=== PATIENT | male | born 1975 | race Caucasian/White ===

== ENCOUNTER 2022-11-07 11:24 | Inpatient (IN) | payer SELFPAY, OTHER ==
[2022-11-07 11:50] VITALS: BP 132/71; PULSE 82; RESP 16; TEMP 36.5; O2SAT 96; BMI 31.6
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
[2022-11-07] MEDS: Acetaminophen 500 MG Tablet 1000 MG PO ×2 (13:50→23:16)
[2022-11-07] MEDS: oxyCODONE 5 MG Tablet PO ×2 (17:20→23:20)
[2022-11-07 20:04] VITALS: PULSE 82; O2SAT 95
[2022-11-07 20:28] VITALS: BP 130/69; PULSE 84; RESP 18; TEMP 36.7; O2SAT 95
[2022-11-07] MEDS: BACITRACIN 15 GM Tube 1 APPLIC TOPICAL (23:12)
[2022-11-07] MEDS: MELATONIN 10 MG TABLET 5 MG PO (23:15)
[2022-11-07] MEDS: levETIRAcetam Oral Solution 500 MG/5 ML PO (23:15)
[2022-11-07] MEDS: QUEtiapine 25 MG Tablet PO (23:16)
[2022-11-07] MEDS: Senna/Docusate Sodium 1 Tablet 2 TABLET PO (23:16)
[2022-11-08] MEDS: Enoxaparin 40 MG/0.4 ML Syringe SC (05:26)
[2022-11-08] MEDS: Acetaminophen 500 MG Tablet 1000 MG PO ×3 (05:27→20:59)
[2022-11-08] MEDS: oxyCODONE 5 MG Tablet PO ×3 (05:30→17:22)
[2022-11-08 06:09] LABS: Mucous, Urine 0 SEEN /hpf (<or=2+); Red Blood Cells-Urine 0 SEEN /hpf (0-5); Squamous Epithelial Cells - UA 0 SEEN /hpf (0-5)
[2022-11-08 06:14] LABS: Color, Urine Yellow (Yellow); Glucose, Dipstick Normal (Normal); Ketone-Dipstick 15 mg/dl (Negative); Leukocyte Esterase-Dipstick Negative /ul (Negative); Nitrite-Dipstick Negative (Negative); Occult Blood-Urine Negative /ul (Negative); Protein-Dipstick 15 mg/dl (Negative); Specific Gravity, Urine 1.025 (1.002-1.030); Urine Bilirubin Dipstick 1 mg/dL (Negative); Urine Clarity Clear (Clear); Urine Urobilinogen 8 mg/dl (Normal)
[2022-11-08 06:26] LABS: Bacteria RARE /hpf (None Seen); White Blood Cells 0-5 SEEN /hpf (0-5)
[2022-11-08] MEDS: BACITRACIN 15 GM Tube 1 APPLIC TOPICAL ×2 (06:27→21:01)
[2022-11-08 07:42] VITALS: BP 119/83; PULSE 76; RESP 16; TEMP 36.8; O2SAT 96
[2022-11-08 08:22] LABS: Absolute Lymphocyte Count 0.74 X10^3/uL (0.83-4.51); Absolute Neutrophil Count 4.8 X10^3/uL (2.0-7.7); Basophil# 0.02 X10^3/uL; Basophil% 0.3 % (0-1); Eosinophil# 0.12 X10^3/uL; Eosinophils% 1.9 % (0-5); Hemoglobin 14.4 g/dL (13.0-16.5); Lymphocyte # 0.74 X10^3/ul (0.83-4.51); Lymphocyte % 11.6 % (19-41); Mean Corp Hgb Conc 36.9 g/dL (32-36); Mean Corpuscular Hgb 33.6 pg (27.0-32.0); Mean Corpuscular Volume 90.9 fL (80-94); Mean Platelet Vol. 9.7 fl (6.2-12.0); Monocyte# 0.72 X10^3/uL; Monocyte% 11.3 % (0-10); NRBC Flagged by Analyzer 0 % (0-5); Neutrophil # 4.79 X10^3/uL (2.7-7.7); Neutrophil % 74.7 % (47-70); Platelet Count 236 K/mm3 (150-450); RBC Distribution Width SD 39.2 fl (35.1-43.9); Red Blood Count 4.29 M/mm3 (4.6-6.2); White Blood Count 6.4 K/mm3 (4.4-11.0)
[2022-11-08 09:00] LABS: ALB/GLOB Ratio 0.8 RATIO (0.9-2.4); AST(SGOT) 50 U/L (15-37); Alanine Aminotransfer ALT/SGPT 63 U/L (16-61); Albumin, Serum 3.2 g/dL (3.2-5.0); Alkaline Phosphatase 81 U/L (45-117); Anion Gap 6 (5-15); BUN 23 mg/dL (7-18); BUN/Creat Ratio 28.4 RATIO (10-20); Calcium,Total 9.3 mg/dL (8.5-10.1); Chloride 105 mmol/L (98-107); Cholesterol 197 mg/dL (200); Creatinine, Serum 0.81 mg/dL (0.70-1.30); EST Glomerular Filtration Rate 109 mL/min (>60); Est Glom Filt Rate - Afr Amer 132 mL/min (>60); Estimated Creatinine Clearance 125.08 ml/min; Glucose 142 mg/dL (74-106); High Density Lipoprotein 36 mg/dL; Magnesium 2.2 mg/dL (1.6-2.6); Phosphorus 3.3 mg/dL (2.5-4.9); Potassium 3.2 mmol/L (3.5-5.1); Protein, Total 7.2 g/dL (6.4-8.2); Sodium Level 138 mmol/L (136-145); Triglycerides 121 mg/dL; Very Low Density Lipoprotein 24 mg/dL (5-40)
[2022-11-08] MEDS: levETIRAcetam Oral Solution 500 MG/5 ML PO ×2 (09:04→20:58)
[2022-11-08] MEDS: Tamsulosin HCl 0.4 MG Capsule PO (09:05)
[2022-11-08] MEDS: Senna/Docusate Sodium 1 Tablet 2 TABLET PO (09:05)
[2022-11-08 10:00] VITALS: O2SAT 96
[2022-11-08] MEDS: Potassium Chloride Oral Tablet 20 MEQ 40 MEQ PO (11:02)
[2022-11-08] MEDS: Potassium Chloride Oral Tablet 20 MEQ PO (11:02)
--- NOTE | 2022-11-08 11:05 | NURSING ---
Patient had lab work obtained this AM. Patient potassium level 3.2, MD notified. Ordered 40 mEq of Klor-Con x1 dose in addition to the 20 mEq Klor-con Daily. notified. Medication administerred to patient.
[2022-11-08 19:34] VITALS: BP 134/80; PULSE 74; RESP 18; TEMP 37.3; O2SAT 96
[2022-11-08 20:50] VITALS: PULSE 74; RESP 18; O2SAT 96
[2022-11-08] MEDS: Mirtazapine 15 MG Tablet PO (20:59)
[2022-11-08] MEDS: QUEtiapine 25 MG Tablet PO (20:59)
[2022-11-08] MEDS: MELATONIN 10 MG TABLET 5 MG PO (21:00)
[2022-11-09] MEDS: oxyCODONE 5 MG Tablet PO ×3 (00:15→11:26)
[2022-11-09] MEDS: Enoxaparin 40 MG/0.4 ML Syringe SC (05:26)
[2022-11-09] MEDS: Acetaminophen 500 MG Tablet 1000 MG PO ×3 (05:26→21:51)
[2022-11-09] MEDS: BACITRACIN 15 GM Tube 1 APPLIC TOPICAL ×2 (05:27→21:55)
--- NOTE | 2022-11-09 06:29 | NURSING ---
Reviewed and agree with VENDING TECHNICIAN assessment.
[2022-11-09 08:02] VITALS: BP 135/88; PULSE 84; RESP 18; TEMP 37.2; O2SAT 93
[2022-11-09] MEDS: Potassium Chloride Oral Tablet 20 MEQ PO (09:29)
[2022-11-09] MEDS: Tamsulosin HCl 0.4 MG Capsule PO (09:29)
[2022-11-09] MEDS: levETIRAcetam Oral Solution 500 MG/5 ML PO ×2 (09:30→21:55)
--- NOTE | 2022-11-09 17:45 | CT_ITS ---
We are attempting to reach an attending provider to discuss findings. An addendum with communication details will be sent when the communication is complete. INDICATION: ALTERED MENTAL STATUS EXAMINATION: CT BRAIN - CT Head W/O Contrast Injection TECHNIQUE: Multiple axial images were obtained of the head without intravenous contrast. A radiation dose optimization technique was used for this scan. IV Contrast dosage and agent: None. COMPARISON: None FINDINGS: Post surgical change with left-sided craniotomy. This patient has a left frontoparietal extra-axial mixed attenuation fluid collection measuring 1.4 cm in thickness. This extends from the high parietal region down to the temporal lobe. There is also some air in the extra-axial space on the left side. Slight midline shift to the right of approximately 2 mm. There is no hydrocephalus. Probable high left subarachnoid blood. No obvious parenchymal hemorrhage is seen. Other significant left-sided sulcal effacement suggesting edema and/or mass effect. Nonspecific low attenuation area at the posterior right temporal lobe axial image 15 series 2 measuring approximately 2.6 cm x 1.9 cm x 1.5 cm. Coronal image 47 series 601. Intact brainstem and posterior fossa. A right frontal catarino hole with adjacent soft tissue staple present axial image 35 series 2. No acute extra-axial collection in this region. Mild sphenoid sinus mucosal disease. CT/STROKE Brain/Head without Cont IMPRESSION: Mixed attenuation left-sided extra-axial collection which may reflect combination of acute/subacute blood products. Left frontal/parietal cerebral edema with mass effect. Very slight left to right midline shift. Abnormal focal hypodensity in the posterior right temporal lobe of unclear significance/etiology. Ischemia is not excluded in this area. Discussed with Dr. Yu. Electronically Signed: Alen James MD at 18:17 EDT ,
--- NOTE | 2022-11-09 17:55 | CT_ITS ---
We are attempting to reach an attending provider to discuss findings. An addendum with communication details will be sent when the communication is complete. INDICATION: ALTERED MENTAL STATUS EXAMINATION: CTA head and neck. TECHNIQUE: Noncontrast axial images were obtained of the brain. Subsequently, routine carotid CT angiogram protocol was performed without and with IV contrast. In addition, images were obtained of the [place] of [place]. NASCET criteria using the distal ICAs for comparison were used for evaluation of stenoses. 3D reconstructions were reviewed. A radiation dose optimization technique was used for this scan. IV Contrast dosage and agent: 100 cc [id number]-[id number]. COMPARISON: None. FINDINGS: --CT BRAIN: Please note separate brain dictation. This patient does have some right-sided mastoid fluid and the middle ear opacity surrounding the ossicles without obvious fracture or dislocation. --CTA NECK: AORTIC ARCH AND BRANCHES: Normal anatomy, patent. RIGHT CCA: No occlusion, significant stenosis or dissection. RIGHT ICA: No occlusion, significant stenosis or dissection. LEFT CCA: No occlusion, significant stenosis or dissection. LEFT ICA: No occlusion, significant stenosis or dissection. RIGHT VERTEBRAL ARTERY: No occlusion, significant stenosis or dissection. LEFT VERTEBRAL ARTERY: No occlusion, significant stenosis or dissection. NECK SOFT TISSUES: Upper lung atelectatic change. Mild cervical spine degenerative change. No definitive acute fracture. --CTA HEAD: --Anterior circulation: ICAs: No significant stenosis at the intracranial/visualized segments. ACAs: No significant stenosis at the visualized segments. ACOM: Present. MCAs: No significant stenosis at the visualized segments. --Posterior circulation: PCOMs: Not well seen. under baster: No significant stenosis at the visualized segments. BASILAR ARTERY: No significant stenosis. VERTEBRAL ARTERIES: No significant stenosis at the intradural/visualized segments. No evidence of intracranial aneurysm or vascular malformation. CT/STROKE CTA Head AND Neck W/Con IMPRESSION: Negative CT Brain, CTA Carotid, and CTA Brain. No hemodynamically significant stenosis appreciated. There is some right-sided mastoid fluid. A fracture through the temporal bone here is not obvious however given the adjacent hypodensity seen on noncontrast CT head, nonhemorrhagic contusion could be considered. Electronically Signed: Alen James MD at 18:31 EDT ,
--- NOTE | 2022-11-09 18:16 | NURSING ---
Marjorie LAWLER went in to [facility] room to check on pt and see if he needed pain meds at approx 1735. She noted pt was not answering questions appropriately. She called this RN in to assess. Pt was answering wrong words to simple questions. Unable to recognize family members. VSS 136/71, 82, 18, 98.6, 97% on room air. Blood sugar checked 137. Stroke alert called Research Group Director arrived to floor and met Dr. Yu and pt was transported to CT scan.
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
[2022-11-09 18:25] VITALS: BP 136/71; PULSE 82; RESP 18; TEMP 36.5; O2SAT 98
[2022-11-09 18:34] LABS: Bedside Glucose 137 mg/dL (74-106)
[2022-11-09 19:00] VITALS: BP 136/71; PULSE 82; RESP 18; TEMP 37; O2SAT 97
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
--- NOTE | 2022-11-09 19:37 | NURSING ---
pt left to PCU via bed per services of rehab staff via bed. Spouse and children accompanied pt to the room .
[2022-11-09 21:45] VITALS: BP 138/95; PULSE 83; RESP 18; TEMP 37.4; O2SAT 94
[2022-11-09] MEDS: MELATONIN 10 MG TABLET 5 MG PO (21:52)
[2022-11-09] MEDS: Mirtazapine 15 MG Tablet PO (21:52)
[2022-11-09] MEDS: QUEtiapine 25 MG Tablet PO (21:55)
--- NOTE | 2022-11-09 22:09 | NURSING ---
2004 pt returned to the floor from PCU via bed per services of hospital staff, family present at bedside
--- NOTE | 2022-11-10 00:06 | NURSING ---
2145 vs retaken and bp is noted to be mildly elevated at 138/95, ap 83 and irregular and temp is 99.4. pt is noted to be restless but reports that he doesn't need extra pain medication when offered. pt did let staff do clinical findings and take hs medication.pt required cueing when asked who his and daughter was and were he was at. pt is only taking sips and chips for for fluids, urine is tea colored with an odor. pt had difficulty keeping his eyes open during clinical findings. pt was able to bend his legs at the knee but would not raise them up when asked, pcts were equal. rn aware of the bp 2315 pt daughter came out and reports that the pt removed his sl and to come and take a look at it, area cleansed and dsd applied which pt removed promptly. staff and family attempted to get pt up to the br, pt did ambulate to the br and started pulling away stating that he didn't need to go in there. pt assisted back to the bed and laid down. pt remains restless with some agitation
[2022-11-10] MEDS: oxyCODONE 5 MG Tablet PO ×3 (01:17→22:48)
[2022-11-10 06:26] LABS: Anion Gap 3 (5-15); BUN 24 mg/dL (7-18); Calcium,Total 9.7 mg/dL (8.5-10.1); Chloride 105 mmol/L (98-107); EST Glomerular Filtration Rate 86 mL/min (>60); Est Glom Filt Rate - Afr Amer 104 mL/min (>60); Estimated Creatinine Clearance 101.31 ml/min; Glucose 103 mg/dL (74-106); Potassium 3.6 mmol/L (3.5-5.1); Sodium Level 138 mmol/L (136-145)
[2022-11-10] MEDS: Acetaminophen 500 MG Tablet 1000 MG PO ×3 (06:31→21:20)
[2022-11-10] MEDS: Enoxaparin 40 MG/0.4 ML Syringe SC (06:32)
[2022-11-10 07:47] VITALS: BP 124/85; PULSE 98; RESP 15; TEMP 36.9; O2SAT 96
[2022-11-10] MEDS: levETIRAcetam Oral Solution 500 MG/5 ML PO ×2 (08:51→21:11)
[2022-11-10] MEDS: BACITRACIN 15 GM Tube 1 APPLIC TOPICAL (08:51)
[2022-11-10] MEDS: Tamsulosin HCl 0.4 MG Capsule PO (08:51)
[2022-11-10] MEDS: Potassium Chloride Oral Tablet 20 MEQ PO ×2 (08:51→11:37)
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
[2022-11-10] MEDS: 0.9% Normal Saline 1,000 ML 75 ML IV (11:38)
--- NOTE | 2022-11-10 13:48 | VDLE_ITS ---
Reason For Study: F/U DVT (DISTAL TO KNEE unknown which leg) RIGHT LEFT GSV is normal. GSV is normal. CFV is compressible. CFV is compressible, spontaneous, phasic, FV is compressible, spontaneous, phasic, competent, and demonstrates normal competent and demonstrates normal augmentation. augmentation. FV is compressible, spontaneous, phasic, POP V is compressible, spontaneous, phasic, competent and demonstrates normal competent and demonstrates normal augmentation. augmentation. POP V is compressible, spontaneous, phasic, T/P Trunk is compressible. competent and demonstrates normal PTV is compressible. augmentation. RT PerV is compressible. T/P Trunk is compressible. Procedure PTV is compressible. This is a venous duplex using B-mode, color LT PerV is compressible. flow and spectral Doppler. Exam performed portable in patient room. The study was technically difficult. PT was agitated. PT would not permit RT CFV evaluation with color or PW doppler. . A preliminary report was called and/or faxed to 4th floor REHAB UNIT. VL/Venous Duplex US - Roni Extrem Interpretation Summary Deep veins of the bilateral lower extremities are patent and compressible segme ntally. There is no evidence of bilateral lower extremity deep vein thrombosis. The bilateral great saphenous veins appear patent and compressible segmentally. Ordering Physician: Crystal Gómez Referring Physician: Crystal Gómez Performed By: Nita Oliver, RDCS, RVT
[2022-11-10] MEDS: 0.9% Normal Saline 1,000 ML 125 ML IV ×2 (16:37→23:29)
[2022-11-10 19:56] VITALS: BP 104/80; PULSE 79; RESP 16; TEMP 36.9; O2SAT 95
[2022-11-10] MEDS: MELATONIN 10 MG TABLET 5 MG PO (21:11)
[2022-11-10] MEDS: QUEtiapine 25 MG Tablet 37.5 MG PO (21:11)
[2022-11-10] MEDS: Mirtazapine 15 MG Tablet PO (21:18)
[2022-11-10 22:00] VITALS: PULSE 79; RESP 16; O2SAT 95
--- NOTE | 2022-11-10 22:55 | NURSING ---
Pt restless this hs and needed coaxing to take hs meds. Pt refused at first but meds were taken. Pt has been impulsive and agitated. Pt sits up at side of bed and grumbles about IV and pole. Pt was walked to BR, but refused to go in. Pt is slouched down at end of bed but refuses to cooperate to get up into bed. Family is at bedside but pt acts impatient with them as they try to answer pt needs. Pt not conveying needs. Call light is within reach and rounding is frequent.
[2022-11-11 04:50] VITALS: BMI 31.6
[2022-11-11] MEDS: Acetaminophen 500 MG Tablet 1000 MG PO ×3 (05:00→21:32)
[2022-11-11] MEDS: Enoxaparin 40 MG/0.4 ML Syringe SC (05:00)
[2022-11-11] MEDS: BACITRACIN 15 GM Tube 1 APPLIC TOPICAL ×2 (05:00→21:33)
[2022-11-11 06:06] LABS: Absolute Lymphocyte Count 1.06 X10^3/uL (0.83-4.51); Absolute Neutrophil Count 4.2 X10^3/uL (2.0-7.7); Basophil# 0.03 X10^3/uL; Basophil% 0.5 % (0-1); Eosinophil# 0.12 X10^3/uL; Eosinophils% 1.9 % (0-5); Hemoglobin 14.1 g/dL (13.0-16.5); Lymphocyte # 1.06 X10^3/ul (0.83-4.51); Lymphocyte % 16.9 % (19-41); Mean Corp Hgb Conc 35.3 g/dL (32-36); Mean Corpuscular Hgb 33.1 pg (27.0-32.0); Mean Corpuscular Volume 93.9 fL (80-94); Mean Platelet Vol. 9.6 fl (6.2-12.0); Monocyte% 12.7 % (0-10); NRBC Flagged by Analyzer 0 % (0-5); Neutrophil # 4.24 X10^3/uL (2.7-7.7); Neutrophil % 67.5 % (47-70); Platelet Count 297 K/mm3 (150-450); RBC Distribution Width CV 12.4 % (11.6-14.6); RBC Distribution Width SD 42.3 fl (35.1-43.9); Red Blood Count 4.26 M/mm3 (4.6-6.2); White Blood Count 6.3 K/mm3 (4.4-11.0)
[2022-11-11 07:02] LABS: Anion Gap 6 (5-15); BUN 22 mg/dL (7-18); BUN/Creat Ratio 25.8 RATIO (10-20); Calcium,Total 9.2 mg/dL (8.5-10.1); Chloride 108 mmol/L (98-107); Creatinine, Serum 0.85 mg/dL (0.70-1.30); EST Glomerular Filtration Rate 103 mL/min (>60); Est Glom Filt Rate - Afr Amer 124 mL/min (>60); Estimated Creatinine Clearance 119.19 ml/min; Glucose 92 mg/dL (74-106); Potassium 3.7 mmol/L (3.5-5.1); Sodium Level 142 mmol/L (136-145)
[2022-11-11 07:43] VITALS: BP 129/68; PULSE 62; RESP 16; TEMP 36; O2SAT 93
[2022-11-11] MEDS: Tamsulosin HCl 0.4 MG Capsule PO (08:32)
[2022-11-11] MEDS: Propranolol LA 60 MG Capsule PO (08:32)
[2022-11-11] MEDS: levETIRAcetam Oral Solution 500 MG/5 ML PO ×2 (08:32→21:32)
[2022-11-11] MEDS: Potassium Chloride Oral Tablet 20 MEQ PO (08:44)
[2022-11-11 10:00] VITALS: O2SAT 94
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
[2022-11-11] MEDS: 0.9% Normal Saline 1,000 ML 75 ML IV (14:48)
[2022-11-11] MEDS: 0.9% Saline Lock 10 ML Syringe IV (14:49)
--- NOTE | 2022-11-11 14:57 | NURSING ---
Spoke with Jazz at Dr Jacoby chapman dc on 11/13 call office and schedule f/u when we have a dc date
[2022-11-11] MEDS: oxyCODONE 5 MG Tablet PO (15:10)
[2022-11-11] MEDS: QUEtiapine 25 MG Tablet PO (15:19)
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
[2022-11-11] MEDS: oxyCODONE 5 MG Tablet 10 MG PO ×2 (19:45→21:35)
[2022-11-11] MEDS: QUEtiapine 25 MG Tablet 75 MG PO (20:54)
[2022-11-11 20:55] VITALS: BP 130/75; PULSE 60; RESP 14; TEMP 36.7; O2SAT 98
[2022-11-11] MEDS: Senna/Docusate Sodium 1 Tablet 2 TABLET PO (21:31)
[2022-11-11] MEDS: Mirtazapine 15 MG Tablet PO (21:32)
[2022-11-11] MEDS: MELATONIN 10 MG TABLET 5 MG PO (21:32)
[2022-11-11 22:00] VITALS: PULSE 63; RESP 15; O2SAT 96
[2022-11-12] MEDS: 0.9% Normal Saline 1,000 ML 75 ML IV (04:02)
[2022-11-12 06:36] VITALS: BMI 31.5
[2022-11-12] MEDS: oxyCODONE 5 MG Tablet 10 MG PO ×5 (06:36→22:08)
[2022-11-12] MEDS: Enoxaparin 40 MG/0.4 ML Syringe SC (06:36)
[2022-11-12] MEDS: Acetaminophen 500 MG Tablet 1000 MG PO ×2 (06:36→22:08)
[2022-11-12] MEDS: BACITRACIN 15 GM Tube 1 APPLIC TOPICAL ×2 (06:36→20:20)
[2022-11-12 07:26] VITALS: BP 107/68; PULSE 58; RESP 15; TEMP 36.7; O2SAT 97
[2022-11-12 07:28] VITALS: BMI 31.5
[2022-11-12] MEDS: Tamsulosin HCl 0.4 MG Capsule PO (10:59)
[2022-11-12] MEDS: Propranolol LA 60 MG Capsule PO (11:00)
[2022-11-12] MEDS: Potassium Chloride Oral Tablet 10 MEQ 30 MEQ PO (11:00)
--- NOTE | 2022-11-12 14:36 | CHAPLAIN ---
Type of Pastoral Visit ___ Initial Visit ___ Follow-up Visit ___ On-call Visit ___ General Patient Visit ___ Spiritual Assessment ___ Family Conference ___ Bereavement ___ Rapid Response ___ Code Blue ___ Other (describe below) Pastoral Care Referral From ___ Patient ___ Family ___ Nurse ___ Physician ___ Municipal Court Judge ___ General Service Technician ___ Other (describe below) Sacrament/Intervention ___ Active listening ___ Anointing ___ Pentecostal ___ Bereavement ___ Communion ___ Sarah exploration ___ ___ Life review ___ Prayer ___ Reconciliation ___ Sacrament of Sick ___ Supportive presence ___ Wedding ___ Other (describe below) Pastoral Comments This is third day of attempts to visit with patient; today the first attempt found him sleeping and staff/family prefer him to be sleeping as needed; today the second attempt he was just to begin his OT session; introduced self to patient with promise to try again another time
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
--- NOTE | 2022-11-12 15:01 | NURSING ---
pt restless and agitated, walked in the hallway with staff and son, scheduled Oxyir given. pt returned to bed. bed alarm on and call light in reach. will continued to monitor
--- NOTE | 2022-11-12 18:08 | NURSING ---
IV fluids paused at this time d/t pt becoming agitated and pulling at tubing
[2022-11-12 19:18] VITALS: BP 134/86; PULSE 59; RESP 15; TEMP 37; O2SAT 96
[2022-11-12 20:30] VITALS: PULSE 59; RESP 15; O2SAT 97
[2022-11-12] MEDS: MELATONIN 10 MG TABLET 5 MG PO (20:31)
[2022-11-12] MEDS: Mirtazapine 15 MG Tablet PO (20:31)
[2022-11-12] MEDS: levETIRAcetam Oral Solution 500 MG/5 ML PO (20:31)
[2022-11-12] MEDS: Senna/Docusate Sodium 1 Tablet 2 TABLET PO (20:32)
[2022-11-12] MEDS: QUEtiapine 25 MG Tablet 75 MG PO (20:44)
[2022-11-12] MEDS: 0.9% Saline Lock 10 ML Syringe IV (21:00)
[2022-11-13] MEDS: 0.9% Normal Saline 1,000 ML 75 ML IV ×2 (05:49→20:11)
[2022-11-13] MEDS: Enoxaparin 40 MG/0.4 ML Syringe SC (05:52)
[2022-11-13] MEDS: Acetaminophen 500 MG Tablet 1000 MG PO ×3 (05:52→21:25)
[2022-11-13] MEDS: oxyCODONE 5 MG Tablet 10 MG PO ×4 (05:52→21:28)
--- NOTE | 2022-11-13 06:29 | NURSING ---
51 phylicia were removed from pts incision this as per order. pt tolerated the procedure fair. pt has thick old dried drainage noted along the incision line, 4 sutures are noted mid way in the incision and were not removed at this time d/t being covered with old thick drainage and pt was becoming restless while the phylicia were being removed
[2022-11-13 08:29] VITALS: BP 131/87; PULSE 64; RESP 18; TEMP 36.6; O2SAT 96
[2022-11-13] MEDS: Propranolol LA 60 MG Capsule PO (09:21)
[2022-11-13] MEDS: Potassium Chloride Oral Tablet 10 MEQ 30 MEQ PO (09:21)
[2022-11-13] MEDS: Tamsulosin HCl 0.4 MG Capsule PO (09:22)
[2022-11-13] MEDS: QUEtiapine 25 MG Tablet PO (11:28)
--- NOTE | 2022-11-13 12:46 | CASEMGMT ---
Social Work IDT met with patient and multiple family members for Team meeting. Discussed patient's progress in PT/OT/ST/SN. Pt has coverage through [employer]. Pt is making progress and requesting continued stay for further improvement. Major barrier is cognition, safety awareness and comprehension. Will ReTea, weekly. SW will continue to follow for DC planning and coordination of needs. Marti Martinez, SLITTER CUT OFF OPERATOR CONSTRUCTION TEACHER
--- NOTE | 2022-11-13 14:57 | CHAPLAIN ---
Type of Pastoral Visit ___ Initial Visit _x__ Follow-up Visit ___ On-call Visit ___ General Patient Visit ___ Spiritual Assessment ___ Family Conference ___ Bereavement ___ Rapid Response ___ Code Blue ___ Other (describe below) Pastoral Care Referral From ___ Patient _x__ Family ___ Nurse ___ Physician ___ Horse Rider ___ Home Theater Specialist ___ Other (describe below) Sacrament/Intervention _x__ Active listening ___ Anointing ___ Congregational ___ Bereavement ___ Communion ___ Sarah exploration ___ ___ Life review _x__ Prayer ___ Reconciliation ___ Sacrament of Sick _x__ Supportive presence ___ Wedding ___ Other (describe below) Pastoral Comments patient is awake this time and is surrounded by several family members who were present for the care team meetings held just minutes before; family members are welcoming and ask for prayers; family members state that there was much good news in the meeting and are pleased for patient; pt was offered support and this membership sales advisor stated that he has stopped to see him before; pt asks why not met before and the answer was because the patient was always sleeping; pt states he understands; family ask for return visits and state hope is for pt to go home in a week; prayer and presence given
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
[2022-11-13 19:15] VITALS: BP 150/80; PULSE 55; RESP 18; TEMP 36.7; O2SAT 95
[2022-11-13 20:22] VITALS: O2SAT 95
[2022-11-13] MEDS: MELATONIN 10 MG TABLET 5 MG PO (21:23)
[2022-11-13] MEDS: QUEtiapine 25 MG Tablet 75 MG PO (21:24)
[2022-11-13] MEDS: Mirtazapine 30 MG Tablet PO (21:25)
[2022-11-13] MEDS: Senna/Docusate Sodium 1 Tablet 2 TABLET PO (21:26)
[2022-11-14 05:43] LABS: Hematocrit 40.9 % (40-54); Hemoglobin 14.6 g/dL (13.0-16.5); Mean Corp Hgb Conc 35.7 g/dL (32-36); Mean Corpuscular Hgb 33.2 pg (27.0-32.0); Mean Platelet Vol. 9.7 fl (6.2-12.0); Platelet Count 305 K/mm3 (150-450); RBC Distribution Width CV 12.3 % (11.6-14.6); White Blood Count 6.2 K/mm3 (4.4-11.0)
[2022-11-14] MEDS: Acetaminophen 500 MG Tablet 1000 MG PO ×3 (05:59→20:21)
[2022-11-14] MEDS: Enoxaparin 40 MG/0.4 ML Syringe SC (05:59)
[2022-11-14 06:00] VITALS: BMI 31.4
[2022-11-14] MEDS: oxyCODONE 5 MG Tablet 10 MG PO ×4 (06:03→20:21)
[2022-11-14 06:08] LABS: Anion Gap 6 (5-15); BUN 19 mg/dL (7-18); BUN/Creat Ratio 19.1 RATIO (10-20); Calcium,Total 9.2 mg/dL (8.5-10.1); Chloride 107 mmol/L (98-107); Creatinine, Serum 0.99 mg/dL (0.70-1.30); EST Glomerular Filtration Rate 86 mL/min (>60); Est Glom Filt Rate - Afr Amer 104 mL/min (>60); Estimated Creatinine Clearance 102.33 ml/min; Glucose 98 mg/dL (74-106); Potassium 3.5 mmol/L (3.5-5.1); Sodium Level 141 mmol/L (136-145)
[2022-11-14 07:49] VITALS: BP 127/86; PULSE 71; RESP 14; TEMP 36.5; O2SAT 95
--- NOTE | 2022-11-14 09:09 | NURSING ---
pt refusing meds this am. would not take any meds this am from nurse. pt turns head and swats nurse away. pt refusing from as well. shaking head no. some aphasia obs as pt trying to argue with and nurse regarding taking meds. pt still not eating much and po's encouraged.
--- NOTE | 2022-11-14 09:53 | NURSING ---
physical therapy in to attempt to get pt up and to work with. pt refused at this time.
[2022-11-14] MEDS: QUEtiapine 25 MG Tablet PO (10:45)
--- NOTE | 2022-11-14 10:55 | NURSING ---
pt took seroquel and oxy for donita sports management intern. pt given choices of what to take meds in and was better since he had some control maybe.
--- NOTE | 2022-11-14 14:47 | NURSING ---
pt up this afternoon to work with therapy. upon ambulating in halls pt opened and went through doors to unit and started pushing buttons for elevator. therapy firmly told pt that was not leaving the unit. pt complied but outwardly upset. back to ambulating around floor and back to room. instructed that could not leave unit if ambulates in walker, so that pt stays behind doors.
--- NOTE | 2022-11-14 16:45 | NURSING ---
pt up to amb in walker with . again attempted to go out doors on unit and able to redirect as well as this rn who happened to witness.
[2022-11-14 19:19] VITALS: BP 142/96; PULSE 82; RESP 16; TEMP 36.8; O2SAT 98
[2022-11-14] MEDS: BACITRACIN 15 GM Tube 1 APPLIC TOPICAL (20:22)
[2022-11-14] MEDS: QUEtiapine 25 MG Tablet 75 MG PO (20:23)
[2022-11-14] MEDS: MELATONIN 10 MG TABLET 5 MG PO (20:24)
[2022-11-14] MEDS: Mirtazapine 30 MG Tablet PO (20:24)
[2022-11-14] MEDS: Senna/Docusate Sodium 1 Tablet 2 TABLET PO (20:25)
[2022-11-14] MEDS: 0.9% Normal Saline 1,000 ML 75 ML IV (20:25)
[2022-11-15] MEDS: BACITRACIN 15 GM Tube 1 APPLIC TOPICAL ×2 (04:54→21:35)
[2022-11-15] MEDS: Acetaminophen 500 MG Tablet 1000 MG PO ×3 (04:55→21:38)
[2022-11-15] MEDS: Enoxaparin 40 MG/0.4 ML Syringe SC (04:55)
[2022-11-15] MEDS: oxyCODONE 5 MG Tablet 10 MG PO ×5 (04:56→21:38)
[2022-11-15 05:10] VITALS: BMI 31.3
[2022-11-15 07:34] VITALS: BP 156/93; PULSE 62; RESP 18; TEMP 36.4; O2SAT 96
[2022-11-15] MEDS: Propranolol LA 60 MG Capsule PO (09:46)
[2022-11-15] MEDS: QUEtiapine 25 MG Tablet PO (09:47)
[2022-11-15] MEDS: Tamsulosin HCl 0.4 MG Capsule PO (09:55)
[2022-11-15] MEDS: Potassium Chloride Oral Tablet 10 MEQ 30 MEQ PO (09:57)
[2022-11-15 19:34] VITALS: BP 130/90; PULSE 77; RESP 17; TEMP 36.7; O2SAT 96
[2022-11-15] MEDS: 0.9% Saline Lock 10 ML Syringe IV (21:32)
[2022-11-15] MEDS: 0.9% Normal Saline 1,000 ML 75 ML IV (21:33)
[2022-11-15] MEDS: MELATONIN 10 MG TABLET 5 MG PO (21:37)
[2022-11-15] MEDS: Mirtazapine 30 MG Tablet PO (21:37)
[2022-11-15] MEDS: Senna/Docusate Sodium 1 Tablet 2 TABLET PO (21:37)
[2022-11-15] MEDS: QUEtiapine 25 MG Tablet 75 MG PO (21:37)
[2022-11-16] MEDS: Acetaminophen 500 MG Tablet 1000 MG PO ×3 (06:00→19:54)
[2022-11-16] MEDS: oxyCODONE 5 MG Tablet 10 MG PO ×5 (06:00→22:02)
[2022-11-16] MEDS: Enoxaparin 40 MG/0.4 ML Syringe SC (06:00)
[2022-11-16] MEDS: BACITRACIN 15 GM Tube 1 APPLIC TOPICAL ×2 (06:00→19:56)
[2022-11-16 07:50] VITALS: BP 138/87; PULSE 58; RESP 15; TEMP 36.4; O2SAT 96
[2022-11-16] MEDS: Potassium Chloride Oral Tablet 10 MEQ 30 MEQ PO (09:46)
[2022-11-16] MEDS: Tamsulosin HCl 0.4 MG Capsule PO (09:46)
[2022-11-16] MEDS: Propranolol LA 60 MG Capsule PO (09:46)
[2022-11-16] MEDS: QUEtiapine 25 MG Tablet PO (09:47)
[2022-11-16 19:32] VITALS: BP 137/68; PULSE 77; RESP 16; TEMP 36.8; O2SAT 97
[2022-11-16] MEDS: Mirtazapine 30 MG Tablet PO (19:53)
[2022-11-16] MEDS: QUEtiapine 25 MG Tablet 75 MG PO (19:54)
[2022-11-16] MEDS: Senna/Docusate Sodium 1 Tablet 2 TABLET PO (19:54)
[2022-11-16] MEDS: MELATONIN 10 MG TABLET 5 MG PO (19:55)
[2022-11-16] MEDS: 0.9% Saline Lock 10 ML Syringe IV (22:10)
[2022-11-16] MEDS: 0.9% Normal Saline 1,000 ML 75 ML IV (22:10)
[2022-11-17] MEDS: Enoxaparin 40 MG/0.4 ML Syringe SC (05:38)
[2022-11-17] MEDS: oxyCODONE 5 MG Tablet 10 MG PO ×3 (05:39→20:18)
[2022-11-17] MEDS: BACITRACIN 15 GM Tube 1 APPLIC TOPICAL ×2 (05:39→20:19)
[2022-11-17] MEDS: Acetaminophen 500 MG Tablet 1000 MG PO ×3 (05:39→20:21)
[2022-11-17] MEDS: Propranolol LA 60 MG Capsule PO (08:05)
[2022-11-17] MEDS: Tamsulosin HCl 0.4 MG Capsule PO (08:05)
[2022-11-17] MEDS: Potassium Chloride Oral Tablet 10 MEQ 30 MEQ PO (08:06)
[2022-11-17 08:41] VITALS: BMI 31.6
[2022-11-17 08:42] VITALS: BP 134/94; PULSE 63; RESP 18; TEMP 36.9; O2SAT 18
[2022-11-17] MEDS: QUEtiapine 25 MG Tablet PO (11:49)
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
[2022-11-17 19:00] VITALS: BP 127/83; PULSE 66; RESP 18; TEMP 36.7; O2SAT 94
[2022-11-17 19:06] VITALS: BP 127/83; PULSE 66; RESP 18; TEMP 36.7; O2SAT 94
[2022-11-17] MEDS: QUEtiapine 25 MG Tablet 75 MG PO (20:19)
[2022-11-17] MEDS: MELATONIN 10 MG TABLET 5 MG PO (20:20)
[2022-11-17] MEDS: Senna/Docusate Sodium 1 Tablet 2 TABLET PO (20:21)
[2022-11-17] MEDS: Mirtazapine 30 MG Tablet PO (20:21)
[2022-11-18] MEDS: Acetaminophen 500 MG Tablet 1000 MG PO ×3 (05:27→20:33)
[2022-11-18] MEDS: BACITRACIN 15 GM Tube 1 APPLIC TOPICAL ×2 (05:28→20:33)
[2022-11-18] MEDS: Enoxaparin 40 MG/0.4 ML Syringe SC (05:28)
[2022-11-18 07:40] VITALS: BP 148/92; PULSE 79; RESP 16; TEMP 36.6; O2SAT 98
--- NOTE | 2022-11-18 10:19 | CASEMGMT ---
Social Work IDT and pt/ requesting DC 11/19. SW spoke with pt and at bedside to review DC needs. Discussed HHC vs OP. Family would prefer C d/t to transportation. SW offered to place referrals to [facility] agencies that accept [facility] and that has ST. Pt has no DME needs. [facility] can accept both. Phoned referral for PT/OT/ST. Plan: DC home with family 11/19, [facility] PT/OT/ST EMY Keene
[2022-11-18] MEDS: QUEtiapine 25 MG Tablet PO (10:32)
[2022-11-18] MEDS: Potassium Chloride Oral Tablet 10 MEQ 30 MEQ PO (10:32)
[2022-11-18] MEDS: Propranolol LA 60 MG Capsule PO (10:32)
--- NOTE | 2022-11-18 18:33 | PCM.DC ---
Discharge Instructions Diet Discharge Diet: No restrictions Activity Discharge Activity: May Not Drive and May Shower Weight Bearing Status: Full weight bearing Dressing / Incision Call your doctor if your incision/area has: Continuous Slow Oozing, Sudden Increased Bleeding, Increased Pain/ Swelling, Increased Redness, Foul Smelling Discharge and Swelling at the incision site Call your doctor if you observe: Fever of 101 or Higher, Shortness of breath, Dizziness, Fainting spells, Swelling in the ankles, Chest pain, Increased palpitations (irregular heartbeat), Calf discomfort, Uncontrolled pain and - (STROKE symptoms: facial droop, slurred speech, inability to get words out, weakness on 1 side of the body and not the other, numbness on 1 side of the body and not the other, inability to maintain your balance sitting or standing, vertigo. ) Suture Line Care: Avoid Pulling/Pushing, Avoid Pinching/Bending and - (No picking at scabs - they will fall off by themselves. ) Cleanse incision/area with: Soap & Water (cleanse gently - do not scrub at the scabs) Follow Up Care Please Follow Up With: Stanley Dozier MD When: You will also follow up with [facility]. Appts have been made for you and are listed toward the end of this document. Test Results: Test results from this visit will be discussed in further detail at your follow-up appointment, if applicable. Discharge Plan Admission Admit Date/Time: 11/07/22 11:24 Primary Reason for Your Visit: Debility secondary to severe traumatic brain injury with recent craniotomy. Attending Provider: Crystal Gómez Instructions Patient Instructions: What Is Traumatic Brain Injury?, Caring for Your Incision Additional Instructions / Restrictions: 1. You have done amazingly well after a rough start on rehab. It took 4-5 days to get the agitation and aggressiveness under control and get you sleeping at night but, we finally found the right drug combination. You are on a medication called Seroquel to control behavior and to help you sleep at night. This medication is also called to your pain. Do NOT stop taking this medication until your doctor tells you to. It needs to be tapered off and can not be suddenly stopped. You are taking a drug called Inderal, also called Propanolol, which is a drug commonly used to treat severe traumatic brain injuries. This drug greatly improved your thought processes starting about 4-5 days after it was started. You may be on this medication for a long time.......research shows that if the medication is stopped in a patient with a severe brain injury that the patient often starts to decline. 2. Do NOT pick at the remaining scab on the skull......the scab will fall off on its own. Everyone has bacteria on their skin and under their nails and if you pick at this it could become infected. 3. Give yourself time to heal. You had a very serious injury and I did not expect you to do as well as you are doing. 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 You are still having some cognitive dysfunction and when you get overly tired it will get worse. I would not go back tyo work until the speech therapist tells you that you can. 4. Good luck to you Rodriguez. If you or Conchita have any questions after leaving rehab please do not hesitate to call me. OFFICE: [phone] CELL: [phone] Discharge Orders/Prescriptions Prescriptions: New quetiapine 25 mg Tablet See Rx Instructions .ROUTE .COMPLEX Qty: 120 0RF Rx Instructions: Take 1 tab with lunch and 3 tabs 1 hour prior to bedtime potassium chloride 10 mEq Tablet,Er Particles/Crystals 30 meq PO DAILYCM Qty: 90 0RF Rx Instructions: Take 3 tablets daily. mirtazapine 30 mg Tablet 30 mg PO QHS Qty: 30 0RF Rx Instructions: Take this medication at bedtime oxycodone 5 mg Tablet 10 mg PO Q4H PRN PRN (Reason: Pain Score 4-10) 7 Days Qty: 35 0RF propranolol 60 mg Capsule,Extended Release 24 Hr 60 mg PO DAILY Qty: 30 0RF Continued acetaminophen 500 mg tablet 1,000 mg PO Q8H bacitracin 500 unit/gram ointment 1 applic topical BID melatonin 5 mg tablet 5 mg PO QHS Qty: 30 0RF Rx Instructions: This is available over the counter at the pharmacy. Discontinued levetiracetam [Keppra] 500 mg tablet 500 mg PO BID ondansetron 4 mg tablet,disintegrating 4 mg PO Q8H PRN potassium chloride [K-Tab] 20 mEq tablet extended release 20 meq PO DAILY quetiapine [Seroquel] 25 mg tablet 25 mg PO QHS tamsulosin [Flomax] 0.4 mg capsule 0.4 mg PO DAILY No Action oxycodone 5 mg tablet 5 mg PO Q6H Referrals / Follow Up: Stanley Dozier MD [Non-Staff] - 11/20/22 1:45 pm (TELEPHONE APPOINTMENT) Enrique Neri PA [Non-Staff] - 11/27/22 9:00 am Disposition Disposition (needs filled in before D/C Order can be placed): Home Health Service
[2022-11-18 19:31] VITALS: BP 123/70; PULSE 78; RESP 16; TEMP 36.8; O2SAT 96
[2022-11-18] MEDS: QUEtiapine 25 MG Tablet 75 MG PO (20:32)
[2022-11-18] MEDS: MELATONIN 10 MG TABLET 5 MG PO (20:32)
[2022-11-18] MEDS: oxyCODONE 5 MG Tablet 10 MG PO (20:32)
[2022-11-18] MEDS: Senna/Docusate Sodium 1 Tablet 2 TABLET PO (20:32)
[2022-11-18] MEDS: Mirtazapine 30 MG Tablet PO (20:33)
--- NOTE | 2022-11-19 04:29 | NURSING ---
Reviewed and agree with Vu LAWLER, documentation and assessment charting.
[2022-11-19] MEDS: BACITRACIN 15 GM Tube 1 APPLIC TOPICAL (05:57)
[2022-11-19] MEDS: Enoxaparin 40 MG/0.4 ML Syringe SC (05:58)
[2022-11-19] MEDS: Acetaminophen 500 MG Tablet 1000 MG PO (05:58)
[2022-11-19 08:00] VITALS: BMI 31.6
[2022-11-19 08:39] VITALS: BP 140/87; PULSE 62; RESP 16; TEMP 37; O2SAT 97
[2022-11-19 10:20] VITALS: BP 140/87; PULSE 62; RESP 16; TEMP 37; O2SAT 97
== END 2022-11-19 10:22 | disposition home health service (06) | DRG 949 ==
PROVIDERS: Admitting Provider Internal Medicine; Referring Provider Internal Medicine; Visit Provider Internal Medicine
DX: S06.5X9D Traumatic subdural hemorrhage with loss of consciousness of unspecified duration, subsequent encounter (principal); I82.459 Acute embolism and thrombosis of unspecified peroneal vein; R13.12 Dysphagia, oropharyngeal phase; V19.9XXD Pedal cyclist (driver) (passenger) injured in unspecified traffic accident, subsequent encounter; S06.A1XD Traumatic brain compression with herniation, subsequent encounter; S02.91XD Unspecified fracture of skull, subsequent encounter for fracture with routine healing; R47.81 Slurred speech; S06.4X9D Epidural hemorrhage with loss of consciousness of unspecified duration, subsequent encounter; R53.1 Weakness; R45.1 Restlessness and agitation
CPT/HCPCS: 36415; 70450; 70496; 70498; 80048; 80053; 80061; 81001; 82962; 83735; 84100; 85025; 85027; 92507; 92523; 92526; 92610; 93005; 93970; 94668; 97110; 97112; 97116; 97129; 97130; 97162; 97166; 97530; 97535; 97802; 97803; J7030; Q9967; A4216

== ENCOUNTER 2022-12-09 12:26 | Outpatient (RCR) | payer SELFPAY, OTHER ==
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
--- NOTE | 2023-01-27 16:56 | HP.SP.DC_ITS ---
ST Discharge Summary Discharged: Discharge: MELIZA ELKINS is a 47 year old male who presented to [facility] on 12/11/22 following a dx of Traumatic Brain Injury. Pt attended initial evaluation with goals created to target keeping a list of home activities that are hard for him. After evaluation, one follow up visits 4 weeks from time of evaluation was scheduled as a check in after Pt had time at home to determine which activities were challenging for him. Pt canceled this follow up appointment on 01/06/23 which was previously discussed as the procedure should he feel back to baseline. Pt being discharged from speech therapy caseload on this date 01/27/23. Thank you for allowing me to participate in the care of your patient. Will reevaluate at Pt?s request following script from physician.
== END 2022-12-09 19:00 | disposition home or self-care (01) ==
LOC: SP 12:26
PROVIDERS: Referring Provider Family Medicine; Visit Provider Family Medicine
DX: S06.9XAD Unspecified intracranial injury with loss of consciousness status unknown, subsequent encounter (principal)

== ENCOUNTER 2024-10-09 21:56 | Emergency (ER) | payer OTHER, SELFPAY ==
[2024-10-09 21:58] VITALS: BP 135/85; PULSE 114; RESP 22; TEMP 39.6; O2SAT 95; BMI 33.7
[2024-10-09 22:00] VITALS: BP 135/85; PULSE 114; RESP 22; TEMP 39.6; O2SAT 95
--- NOTE | 2024-10-09 22:18 | EKG12_ITS ---
Test Reason : FEVER Blood Pressure : */* mmHG Vent. Rate : 95 BPM Atrial Rate : 95 BPM P-R Int : 142 ms QRS Dur : 84 ms QT Int : 322 ms P-R-T Axes : -3 16 14 degrees QTcB Int : 404 ms Normal sinus rhythm Minimal voltage criteria for LVH, may be normal variant ( R in aVL ) Borderline ECG Confirmed by Mark Blair ([id number]), primer expeditor and drier JENNIFER GALLAGHER ([id number]) on 10/11/2024 1:13:32 PM Referred By: Chidi Culp Confirmed By: Mark Blair
--- NOTE | 2024-10-09 22:21 | EX.ED.DYSGE1 ---
HPI History of Present Illness Chief Complaint: Fever Informant: patient and spouse/S.O. Narrative Narrative: 49-year-old male been having fevers, body aches, malaise for the past 3 to 4 days. He started having tongue and throat discomfort with white patches on his tongue that he suspects is thrush mainly today. He does not have diabetes, any known medical problems, he takes no prescriptions, and he has had no medications recently for anything before this started, including any antibiotics or prednisone. He denies having a cough. He denies having abdominal pain, vomiting or diarrhea, or any urinary symptoms. He has some mild headache. He was taken Tylenol at the beginning which was helping but he stopped taking it today and his fever spiked to 103.5 and his symptoms were worse. No known sick contacts. 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 Home Medications ?Medication ?Instructions ?Recorded ?Last Taken ?Type nystatin 100,000 unit/mL oral 5 ml buccal Q6H 14 days #280 mL 10/10/24 Unknown Rx suspension Allergy/AdvReac Type Severity Reaction Status Date / Time No Known Allergies Allergy Verified 10/09/24 21:58 Family History unable to obtain Surgical History H/O craniotomy Social History household members: spouse housing: house number of children: 5 current occupational status: employed 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 history of recent travel: No sexually active: Yes Smoking Status: Never smoker ROS ROS ED Constitutional Constitutional ED: Reports body ache(s), chills, fever(s) and malaise Eyes Eyes: Denies change in vision or diplopia ENT ENT ED: Reports sore throat and other Details: Tongue pain ; Denies ear pain or rhinorrhea Cardiovascular Cardiovascular: Denies chest pain or palpitations Respiratory/Chest Respiratory/Chest: Denies cough or dyspnea Gastrointestinal Gastrointestinal: Denies abdominal pain, diarrhea, nausea or vomiting Genitourinary Genitourinary ED: Denies dysuria or hematuria Musculoskeletal Musculoskeletal: Denies back pain or neck pain Integumentary Denies abscess or rash Neurologic Neurologic: Reports headache(s); Denies paresthesias or weakness Psychiatric Psychiatric: Denies anxiety or suicidal thoughts EXAM Physical Exam Const Vital Signs: 10/09/24 21:58 10/09/24 22:00 10/09/24 22:05 Temperature 103.2 F H 103.2 F H Temperature Source Oral Oral Pulse Rate 114 H 114 H Respiratory Rate 22 H 22 H Respiratory Effort Labored Accessory Muscle Use Respiratory Pattern Tachypnea Blood Pressure 135/85 H 135/85 H Blood Pressure Mean 101 101 Pulse Ox 95 95 Oxygen Delivery Method Room Air Room Air 10/09/24 22:25 10/09/24 23:00 Temperature 102 F H Temperature Source Oral Pulse Rate 91 Respiratory Rate 16 Respiratory Effort Respiratory Pattern Blood Pressure 133/80 H Blood Pressure Mean 97 Pulse Ox 94 99 Oxygen Delivery Method Room Air Room Air Positive well nourished and well developed Constitutional Narrative: Well-appearing in no distress conversive in full sentences normal voice no stridor or hoarseness General Appearance ED: well developed and NAD HEENT Reports moist mucous membranes HEENT Narrative: White discoloration of her tongue mildly tender, erythema in the hard palate and posterior pharynx has mild normocephalic and atraumatic Eyes PERRL and EOMs intact bilaterally Neck full ROM, no lymphadenopathy and supple Resp normal respiratory effort and clear to auscultation bilaterally Cardio regular rate, regular rhythm and no murmurs Rate: other Other Details: Mild tachycardia, consistent with current temperature of 103.2 GI non-tender and non-distended Auscultation: normoactive bowel sounds Palpation: soft Back/Spine no CVA tenderness General Back: other FROM Extremity normal to inspection General Extremety ED: Negative for edema, pulses abnormal or tenderness General Extremity: Negative for edema or pulses abnormal Neuro oriented x3, CN's II-XII intact bilaterally and no sensory deficits noted Sensorium / Orientation: awake and alert Motor Exam: strength 5/5 throughout Psych mental status grossly normal Skin no rashes or lesions noted, no wounds and skin turgor normal MDM MDM MDM Narrative Medical decision making narrative: Performed a septic workup, the patient does not have a leukocytosis or bandemia, his lactate is less than 1.0, COVID/influenza/RSV swab is negative, urine shows no infection, chest x-ray 2 views of mitral rotation negative for pneumonia, and his vital signs normalized and he felt better after Toradol. Still his temperature so we will give him some Tylenol. I do not think he needs to be admitted. He looks well, he does not appear to have meningitis based on my exam, the rest of his testing really is unremarkable. He states he had thrush before like 6 months ago, and this feels similar. I do think he has thrush, it would be unusual for it to occur all of a sudden and to cause this syndrome with high fevers, I certainly treated, but am still concerned that there may be something else causing his fever but I do not think he needs to be admitted to have emergent further testing for it. He is in agreement. I offered admission. I think it would be reasonable to do a viral respiratory panel prior to discharge, and again prescribe him the nystatin swish and swallow and have him follow-up with his doctor he is comfortable with that plan. We did send blood and urine cultures, he was advised that if they are positive we will let him know and treat him accordingly. Lab Data Attestation: I reviewed the patient's lab results. Labs: Laboratory Results - last 24 hr 10/09/24 10/09/24 10/09/24 22:26 22:34 22:49 WBC 4.6 RBC 5.02 Hgb 17.0 H Hct 45.8 MCV 91.2 MCH 33.9 H MCHC 37.1 H RDW Std Deviation 39.6 RDW Coeff of Ryan[place] 11.9 Plt Count 133 L MPV 10.2 Immature Gran % (Auto) 0.200 Neut % (Auto) 80.6 H Lymph % (Auto) 8.3 L Ellis % (Auto) 9.4 Eos % (Auto) 1.3 Baso % (Auto) 0.2 Absolute Neuts (auto) 3.7 Absolute Lymphs (auto) 0.38 L Nucleated RBC % 0 PT Cancelled 14.6 INR Cancelled 1.1 APTT Cancelled 30.8 Sodium 135 Potassium 3.4 Chloride 100 Carbon Dioxide 23.2 Anion Gap 13 BUN 15 Creatinine 1.07 Estim Creat Clear Calc 109.58 Est GFR (MDRD) Non-Af 86 BUN/Creatinine Ratio 14.4 Glucose 97 Lactic Acid < 1.0 Calcium 9.0 Total Bilirubin 0.93 AST 51 H ALT 63 H Alkaline Phosphatase 100 Total Protein 6.7 Albumin 4.0 Globulin 2.7 Albumin/Globulin Ratio 1.5 Urine Color Yellow Urine Clarity Clear Urine pH 6.0 Ur Specific [place] 1.020 Urine Protein 30 H Urine Glucose (UA) Normal Urine Ketones Negative Urine Occult Blood 10 H Urine Nitrite Negative Urine Bilirubin Negative Urine Urobilinogen 4 H Ur Leukocyte Esterase 25 H Urine RBC 0-5 SEEN Urine WBC 0-5 SEEN Ur Squamous Epith Cells 0-5 SEEN Urine Bacteria 1+ Urine Mucus 2+ Radiography Diagnostic Testing: Clinical Impression(s) from Imaging Studies Chest X-Ray 10/09/24 22:40 IMPRESSION: No acute cardiopulmonary abnormality. Reading Location: [facility] Rhythm Strip Rhythm Strip: Sinus Rhythm Rate: 95 Ectopy: None EKG Initial EKG: Attestation: I personally reviewed and interpreted this EKG as follows: Interpretation: Sinus Rhythm and No Acute Injury Pattern Comments: Nml axis & intervals; nml EKG Discharge Plan Triage Chief Complaint: Fever ED Provider: Chidi Culp Dx/Rx/DC Orders Clinical Impression: Acute febrile illness, Oral thrush Instructions: Evelyn Infection: Thrush, ED FUO Adult Prescriptions: New nystatin 100,000 unit/mL suspension 5 ml buccal Q6H 14 Days Qty: 280 0RF Rx Instructions: swish/hold in mouth for as long as able, gargle if able; spit out Primary Care Provider: Enrique Neri Referrals: Enrique Neri PA [Primary Care Provider] - 3-5 Days Print Language: Azeri Disposition Disposition: Home, Self Care
[2024-10-09 22:25] VITALS: O2SAT 94
[2024-10-09] MEDS: Ketorolac 30 MG/ML Syringe 15 MG IV (22:29)
[2024-10-09 22:37] LABS: Hematocrit 45.8 % (40-54); Hemoglobin 17.0 g/dL (13.0-16.5); Immature Granulocytes Count 0.010 X10^3/uL (0.0-0.0); Mean Corp Hgb Conc 37.1 g/dL (32-36); Mean Corpuscular Volume 91.2 fL (80-94); Mean Platelet Vol. 10.2 fl (6.2-12.0); NRBC Flagged by Analyzer 0 % (0-5); POSITIVE DIFFERENTIAL YES; Platelet Count 133 K/mm3 (150-450); RBC Distribution Width CV 11.9 % (11.6-14.6); RBC Distribution Width SD 39.6 fl (35.1-43.9); Red Blood Count 5.02 M/mm3 (4.6-6.2); White Blood Count 4.6 K/mm3 (4.4-11.0)
--- OUTSIDE RECORDS SUMMARY | 2024-10-09 22:39 | XMS RPT_ITS | CCD ---
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 Sagittal and Coronal reconstruction images included. Dose reduction was employed with automated exposure control. COMPARISON: CT head from 11/02/2022. CT head from 11/01/2022. FINDINGS: Cerebral and cerebellar parenchyma: No acute intraparenchymal hemorrhage. No midline shift.. Basal cisterns are patent. Ventricles and Extra-axial spaces: There is mild smooth dural thickening deep to the craniotomy site. Adjacent small left-sided subdural collection, predominantly hypodense, overlying the left frontal and temporal convexities. This measures up to 8 mm in thickness. On the most recent comparison CT, there was a small collection of subdural gas at this site. The previously visualized large hyperdense epidural hematoma in the left temporal fossa has resolved. No residual subarachnoid hemorrhage is identified. Visualized Paranasal sinuses: Normal. Mastoid air cells: Small right mastoid effusion. Visualized Orbits: Normal Calvarium and skull base: Status post left-sided craniotomy. [facility] [employer] [facility] Mary Red M D - 12/01/2022 [facility] Name: [facility] 1975 [id number] Ex[facility] Date/Time: 12/01/2022 13:10 Procedure: CT HEAD WO IV CONTRAST Ordering Provider: OLSON IRIS Reason For Exam: f/u epidural hematoma CT HEAD: CLINICAL INDICATION: f/u epidural hematoma TECHNIQUE: Transaxial CT sequence performed through the head with 3 mm reconstruction. Sagittal and Coronal reconstruction images included. Dose reduction was employed with automated exposure control. COMPARISON: CT head from 11/02/2022. CT head from 11/01/2022. FINDINGS: Cerebral and cerebellar parenchyma: No acute intraparenchymal hemorrhage. No midline shift.. Basal cisterns are patent. Ventricles and Extra-axial spaces: There is mild smooth dural thickening deep to the craniotomy site. Adjacent small left-sided subdural collection, predominantly hypodense, overlying the left frontal and temporal convexities. This measures up to 8 mm in thickness. On the most recent comparison CT, there was a small collection of subdural gas at this site. The previously visualized large hyperdense epidural hematoma in the left temporal fossa has resolved. No residual subarachnoid hemorrhage is identified. Visualized Paranasal sinuses: Normal. Mastoid air cells: Small right mastoid effusion. Visualized Orbits: Normal Calvarium and skull base: Status post left-sided craniotomy. IMPRESSION: Mild smooth dural thickening and small predominantly hypodense subdural fluid collection deep to the left sided craniotomy site. Report Dictated on Electronically Signed By: Mary Red MD Electronically Signed Date/Time: 12/01/2022 2:55 PM EDT [facility] [employer] Radiology Study observation (narrative) [facility] CT Head WO contrastOrdered B y: Mary Red on 12-01-2022 [email or web address] Work Phone: Office Visiton 11-20-2022 Follow-up visit [id number] Meliza Elkins 1975 M Date Provider Department Center 11/20/2022 [id number] MONTENE[place]O [facility] [place] [facility] [place] No family history on file Level of Service:05426 ME POSTOP FOLLOW UP VISIT RELATED TO ORIGINAL PX Reason for Visit and Comments: New Patient [542] - follow up head injury-not improving per family [facility] Progress Noteon 11-20-2022 Progress Note He is postop from ne s recent craniotomy for head trauma. He is doing well. Sutures have been removed he is now at home. He seems to have recovered well from his craniotomy for head trauma. His is on the call. He appears to be back to his functional baseline without neurological deficits based upon review of systems. Sutures have been removed and he states the incision is healed well. I recommend a postoperative head CT. If this is satisfactory he does not need to follow-up with me as follow-up is not convenient based upon geographic and socioeconomic situation Patient was seen today via Telehealth by agreement and consent. I used the following Telehealth technology: Audio capability only. Total length of call 15 minutes. The patient was offered and advised video for a more comprehensive evaluation, but the patient declined or was unable to use video. Patient location: Patient Location: Home. This patient encounter is appropriate and reasonable under the circumstances: transportation issues . The patient has been advised of the potential risks and limitations of this mode of treatment (including but not limited to the absence of in-person examination) and has agreed to be treated in a remote fashion in spite of them. Any and all of the patient's/patient's family's questions on this issue have been answered and I have made no promises or guarantees to the patient. The patient has also been advised to contact this office for worsening conditions or problems, and seek emergency medical treatment and/or call 911 if the patient deems either necessary. The patient stated that they are currently in the [facility]. If the patient is a minor, permission has been obtained by the parent or guardian for the patient to receive medical care at this visit. [facility] 36on 11-14-2022 36 Patient's Juana garcia called to cancel her husbands upcoming vascular tests. She stated testing is no longer needed. If this is not the case, please reach out to the patient with further instruction. Thank you Normal [facility] Basic Metabolic Profile (BMP )on 11-14-2022 BUN/CRE 19.1 RATIO Normal 10-20 [facility] Comment on above: Performed By: #### L 500.2500, L100.0100 #### [facility] [address] [place], [address] CA,Total 9.2 mg/dL Normal 8.5-10.1 [facility] Comment on above: Performed By: #### L 500.2500, L100.0100 #### [facility] [address] [place], [address] Chloride [Moles/Vol] 107 mmol/L Normal 98-107 [facility] Comment on above: Performed By: #### L 500.2500, L100.0100 #### [facility] [address] [place], [address] CO2 [Moles/Vol] 28.0 mmol/L Normal 21.0-32.0 [facility] Comment on above: Performed By: #### L 500.2500, L100.0100 #### [facility] [address] [place], [address] Creatinine [Mass/Vol] 0.99 mg/dL Normal 0.70-1.30 [facility] Comment on above: Result Comment: The validity of the calculated GFR GFRAA in patients over 70 years has not been determined. Clinical correlation is essential. Performed By: #### L 500.2500, L100.0100 #### [facility] [address] [place], [address] ECRCL 102.33 ml/min Normal [facility] Comment on above: Performed By: #### L 500.2500, L100.0100 #### [facility] [address] [place], [address] EST GFR - AA 104 mL/min Normal >60 [facility] Comment on above: Result Comment: Afri can Croatian GFR Calc Performed By: #### L 500.2500, L100.0100 #### [facility] [address] [place], [address] GAP 6 Normal 5-15 [facility] Comment on above: Performed By: #### L 500.2500, L100.0100 #### [facility] [address] [place], [address] GFR/1.73 sq M.predicted among non-blacks MDRD (S/P/Bld) [Vol rate/Area] 86 mL/min/{1.73_m2} Normal >60 [facility] Comment on above: Result Comment: Non- GFR Calc Performed By: #### L 500.2500, L100.0100 #### [facility] [address] [place], [address] Glucose [Mass/Vol] 98 mg/dL Normal 74-106 [facility] Comment on above: Performed By: #### L 500.2500, L100.0100 #### [facility] [address] [place], [address] Potassium [Moles/Vol] 3.5 mmol/L Normal 3.5-5.1 [facility] Comment on above: Performed By: #### L 500.2500, L100.0100 #### [facility] [address] [place], [address] Sodium [Moles/Vol] 141 mmol/L Normal 136-145 [facility] Comment on above: Performed By: #### L 500.2500, L100.0100 #### [facility] [address] [place], [address] Urea nitrogen [Mass/Vol] 19 mg/dL High 7-18 [facility] Comment on above: Performed By: #### L 500.2500, L100.0100 #### [facility] [address] [place], [address] Basophil percentageOrdered B y: Crystal Gómez on 11-14-2022 Chloride [Moles/Vol] 107 mmol/L 98-107 [facility] Glucose [Mass/Vol] 98 mg/dL 74-106 [facility] Potassium [Moles/Vol] 3.5 mmol/L 3.5-5.1 [facility] Sodium [Moles/Vol] 141 mmol/L 136-145 [facility] WBC (Bld) [#/Vol] 6.2 10*3/uL 4.4-11.0 [facility] Blood erythrocytes count (nu mber/volume)Ordered By: Crystal Rico on 11-14-2022 RBC (Bld) [#/Vol] 4.40 10*6/uL 4.6-6.2 [facility] Blood hemoglobin measurement (mass/volume)Ordered By: Crystal Gómez on 11-14-2022 Hemoglobin (Bld) [Mass/Vol] 14.6 g/dL 13.0-16.5 [facility] Blood platelet mean volumeOr dered By: Crystal Gómez on 11-14-2022 Platelet mean volume (Bld) [Entitic vol] 9.7 fL 6.2-12.0 [facility] CBC-Complete Blood Cnt No Di ffon 11-14-2022 Erythrocyte distribution width (RBC) [Ratio] 12.3 % Normal 11.6-14.6 [facility] Comment on above: Performed By: #### L 500.2500, L100.0100 #### [facility] [address] [place], [address] Hematocrit (Bld) [Volume fraction] 40.9 % Normal 40-54 [facility] Comment on above: Performed By: #### L 500.2500, L100.0100 #### [facility] [address] [place], [address] Hemoglobin (Bld) [Mass/Vol] 14.6 g/dL Normal 13.0-16.5 [facility] Comment on above: Performed By: #### L 500.2500, L100.0100 #### [facility] [address] [place], [address] MCH (RBC) [Entitic mass] 33.2 pg High 27.0-32.0 [facility] Comment on above: Performed By: #### L 500.2500, L100.0100 #### [facility] [address] [place], [address] MCHC (RBC) [Mass/Vol] 35.7 g/dL Normal 32-36 [facility] Comment on above: Performed By: #### L 500.2500, L100.0100 #### [facility] [address] [place], [address] MCV (RBC) [Entitic vol] 93.0 fL Normal 80-94 [facility] Comment on above: Performed By: #### L 500.2500, L100.0100 #### [facility] [address] [place], [address] Platelet mean volume (Bld) [Entitic vol] 9.7 fL Normal 6.2-12.0 [facility] Comment on above: Performed By: #### L 500.2500, L100.0100 #### [facility] [address] [place], [address] Platelets (Bld) [#/Vol] 305 10*3/uL Normal 150-450 [facility] Comment on above: Performed By: #### L 500.2500, L100.0100 #### [facility] [address] [place], [address] RBC (Bld) [#/Vol] 4.40 10*6/uL Low 4.6-6.2 [facility] Comment on above: Performed By: #### L 500.2500, L100.0100 #### [facility] [address] [place], [address] RDW SD 42.0 fl Normal 35.1-43.9 [facility] Comment on above: Performed By: #### L 500.2500, L100.0100 #### [facility] [address] [place], [place], [id number] WBC (Bld) [#/Vol] 6.2 10*3/uL Normal 4.4-11.0 [facility] Comment on above: Performed By: #### L 500.2500, L100.0100 #### [facility] [address] [place], [address] Determination of erythrocyte mean corpuscular volume (MCV)Ordered By: Crystal Gómez on 11-14-2022 MCV (RBC) [Entitic vol] 93.0 fL 80-94 [facility] Hematocrit Auto (Bld) [Volum e fraction]Ordered By: Crystal Gómez on 11-14-2022 Hematocrit (Bld) [Volume fraction] 40.9 % 40-54 [facility] - Chemistry and C hemistry - challengeOrdered By: Crystal Gómez on 11-14-2022 CO2 [Moles/Vol] 28.0 mmol/L 21.0-32.0 [facility] Urea nitrogen/Creatinine [Mass ratio] 19.1 mg/mg 10-20 [facility] - Hematology and Cell countsOrdered By: Crystal Gómez on 11-14-2022 Erythrocyte distribution width (RBC) [Entitic vol] 42.0 fL 35.1-43.9 [facility] Erythrocyte distribution width (RBC) [Ratio] 12.3 % 11.6-14.6 [facility] MCH (RBC) [Entitic mass] 33.2 pg 27.0-32.0 [facility] MCHC Auto (RBC) [Mass/Vol]Or dered By: Crystal Gómez on 11-14-2022 MCHC (RBC) [Mass/Vol] 35.7 g/dL 32-36 [facility] No Panel InformationOrdered By: Crystal Gómez on 11-14-2022 Estimated Creatinine Clearance Calc 102.33 ml/min [facility] Estimated GFR (MDRD) Amer 104 mL/min >60 [facility] Comment on above: GFR Calc Estimated GFR (MDRD) Non-Af Amer 86 mL/min >60 [facility] Comment on above: Non- GFR Calc Platelets bldOrdered By: Kimber Gómez on 11-14-2022 Platelets (Bld) [#/Vol] 305 10*3/uL 150-450 [facility] Serum or plasma calcium lavell urement (mass/volume)Ordered By: Crystal Rico on 11-14-2022 Calcium [Mass/Vol] 9.2 mg/dL 8.5-10.1 [facility] Serum or plasma creatinine m easurement (mass/volume)Ordered By: Crystal Rico on 11-14-2022 Creatinine [Mass/Vol] 0.99 mg/dL 0.70-1.30 [facility] Comment on above: The validity of the calculated GFR & GFRAA in patients over 70 years has not been determined. Clinical correlation is essential. Serum or plasma urea nitroge n measurement (mass/volume)Ordered By: Crystal Whitejovan on 11-14-2022 Urea nitrogen [Mass/Vol] 19 mg/dL 7-18 [facility] Thin prep Papanicolaou smear with manual screeningOrdered By: Crystal Rico on 11-14-2022 Thin prep Papanicolaou smear with manual screening 6 5-15 [facility] CARECOORDon 11-12-2022 CARECOORD Patient Choice Patient Name: MELIZA ELKINS Date of : 1975 [facility] 36on 11-11-2022 36 [facility] notified Normal [facility] 36 These should be julius norm on 11/13/2022. Normal [facility] 36 [facility] left v m requesting staple removal date for pt. They can be reached at [phone] [facility] Absolute lymphocyte countOrd ered By: Crystal Whitejovan on 11-11-2022 Lymphocytes Auto (Unsp spec) [#/Vol] 1.06 10*3/uL 0.83-4.51 [facility] Basic Metabolic Profile (BMP )on 11-11-2022 BUN/CRE 25.8 RATIO High 10-20 [facility] Comment on above: Performed By: #### L 500.2500, L100.0100 #### [facility] [address] [place], [address] CA,Total 9.2 mg/dL Normal 8.5-10.1 [facility] Comment on above: Performed By: #### L 500.2500, L100.0100 #### [facility] [address] [place], [address] Chloride [Moles/Vol] 108 mmol/L High 98-107 [facility] Comment on above: Performed By: #### L 500.2500, L100.0100 #### [facility] [address] [place], [address] CO2 [Moles/Vol] 28.0 mmol/L Normal 21.0-32.0 [facility] Comment on above: Performed By: #### L 500.2500, L100.0100 #### [facility] [address] [place], [address] Creatinine [Mass/Vol] 0.85 mg/dL Normal 0.70-1.30 [facility] Comment on above: Result Comment: The validity of the calculated GFR GFRAA in patients over 70 years has not been determined. Clinical correlation is essential. Performed By: #### L 500.2500, L100.0100 #### [facility] [address] [place], [address] ECRCL 119.19 ml/min Normal [facility] Comment on above: Performed By: #### L 500.2500, L100.0100 #### [facility] [address] [place], [address] EST GFR - AA 124 mL/min Normal >60 [facility] Comment on above: Result Comment: Afri can Croatian GFR Calc Performed By: #### L 500.2500, L100.0100 #### [facility] [address] [place], [address] GAP 6 Normal 5-15 [facility] Comment on above: Performed By: #### L 500.2500, L100.0100 #### [facility] [address] [place], [address] GFR/1.73 sq M.predicted among non-blacks MDRD (S/P/Bld) [Vol rate/Area] 103 mL/min/{1.73_m2} Normal >60 [facility] Comment on above: Result Comment: Non- GFR Calc Performed By: #### L 500.2500, L100.0100 #### [facility] [address] [place], [address] Glucose [Mass/Vol] 92 mg/dL Normal 74-106 [facility] Comment on above: Performed By: #### L 500.2500, L100.0100 #### [facility] [address] [place], [address] Potassium [Moles/Vol] 3.7 mmol/L Normal 3.5-5.1 [facility] Comment on above: Performed By: #### L 500.2500, L100.0100 #### [facility] [address] [place], [address] Sodium [Moles/Vol] 142 mmol/L Normal 136-145 [facility] Comment on above: Performed By: #### L 500.2500, L100.0100 #### [facility] [address] [place], [address] Urea nitrogen [Mass/Vol] 22 mg/dL High 7-18 [facility] Comment on above: Performed By: #### L 500.2500, L100.0100 #### [facility] [address] [place], [address] Basophil percentageOrdered B y: Crystal Gómez on 11-11-2022 Basophils/100 WBC (Bld) 0.5 % 0-1 [facility] Eosinophils/100 WBC (Bld) 1.9 % 0-5 [facility] Neutrophils (Bld) [#/Vol] 4.2 10*3/uL 2.0-7.7 [facility] Neutrophils/100 WBC (Bld) 67.5 % 47-70 [facility] Blood lymphocytes/100 leukoc ytesOrdered By: Crystal Whitejovan on 11-11-2022 Lymphocytes/100 WBC (Bld) 16.9 % 19-41 [facility] Blood monocytes/100 leukocyt esOrdered By: Crystal Gómez on 11-11-2022 Monocytes/100 WBC (Bld) 12.7 % 0-10 [facility] CBC W/Diff, Automatedon 10-22 Absolute Lymph 1.06 X10 3/uL Normal 0.83-4.51 [facility] Comment on above: Performed By: #### L 500.2500, L100.0100 #### [facility] [address] [place], [address] Absolute Neut 4.2 X10 3/uL Normal 2.0-7.7 [facility] Comment on above: Performed By: #### L 500.2500, L100.0100 #### [facility] [address] [place], [address] Basophils/100 WBC (Bld) 0.5 % Normal 0-1 [facility] Comment on above: Performed By: #### L 500.2500, L100.0100 #### [facility] [address] [place], [address] Eosinophils/100 WBC (Bld) 1.9 % Normal 0-5 [facility] Comment on above: Performed By: #### L 500.2500, L100.0100 #### [facility] [address] [place], [address] Erythrocyte distribution width (RBC) [Ratio] 12.4 % Normal 11.6-14.6 [facility] Comment on above: Performed By: #### L 500.2500, L100.0100 #### [facility] [address] [place], [address] Hematocrit (Bld) [Volume fraction] 40.0 % Normal 40-54 [facility] Comment on above: Performed By: #### L 500.2500, L100.0100 #### [facility] [address] [place], [address] Hemoglobin (Bld) [Mass/Vol] 14.1 g/dL Normal 13.0-16.5 [facility] Comment on above: Performed By: #### L 500.2500, L100.0100 #### [facility] [address] [place], [address] IG% 0.500 Normal 0.0-0.9 [facility] Comment on above: Result Comment: IG% - Immature Granulocytes (promyelocytes, myelocytes and metamyelocytes) > 1% indicates that a LEFT SHIFT is Present. Performed By: #### L 500.2500, L100.0100 #### [facility] [address] [place], [address] Lymphocytes/100 WBC (Bld) 16.9 % Low 19-41 [facility] Comment on above: Performed By: #### L 500.2500, L100.0100 #### [facility] [address] [place], [address] MCH (RBC) [Entitic mass] 33.1 pg High 27.0-32.0 [facility] Comment on above: Performed By: #### L 500.2500, L100.0100 #### [facility] [address] [place], [address] MCHC (RBC) [Mass/Vol] 35.3 g/dL Normal 32-36 [facility] Comment on above: Performed By: #### L 500.2500, L100.0100 #### [facility] [address] [place], [address] MCV (RBC) [Entitic vol] 93.9 fL Normal 80-94 [facility] Comment on above: Performed By: #### L 500.2500, L100.0100 #### [facility] [address] [place], [address] Monocytes/100 WBC (Bld) 12.7 % High 0-10 [facility] Comment on above: Performed By: #### L 500.2500, L100.0100 #### [facility] [address] [place], [address] Neutrophils/100 WBC (Bld) 67.5 % Normal 47-70 [facility] Comment on above: Performed By: #### L 500.2500, L100.0100 #### [facility] [address] [place], [address] Nucleated RBC (Bld) [#/Vol] 0 10*3/uL Normal 0-5 [facility] Comment on above: Performed By: #### L 500.2500, L100.0100 #### [facility] [address] [place], [address] Platelet mean volume (Bld) [Entitic vol] 9.6 fL Normal 6.2-12.0 [facility] Comment on above: Performed By: #### L 500.2500, L100.0100 #### [facility] [address] [place], [address] Platelets (Bld) [#/Vol] 297 10*3/uL Normal 150-450 [facility] Comment on above: Performed By: #### L 500.2500, L100.0100 #### [facility] [address] [place], [address] RBC (Bld) [#/Vol] 4.26 10*6/uL Low 4.6-6.2 [facility] Comment on above: Performed By: #### L 500.2500, L100.0100 #### [facility] [address] [place], [address] RDW SD 42.3 fl Normal 35.1-43.9 [facility] Comment on above: Performed By: #### L 500.2500, L100.0100 #### [facility] [address] [place], [address] WBC (Bld) [#/Vol] 6.3 10*3/uL Normal 4.4-11.0 [facility] Comment on above: Performed By: #### L 500.2500, L100.0100 #### [facility] [address] [place], [address] Laboratory - Hematology and Cell countsOrdered By: Crystal Gómez on 11-11-2022 Immature granulocytes/100 WBC (Bld) 0.500 % 0.0-0.9 [facility] Comment on above: IG% - Immature Granu locytes (promyelocytes, myelocytes and metamyelocytes) > 1% indicates that a LEFT SHIFT is Present. Nucleated RBC/100 WBC (Bld) [Ratio] 0 % 0-5 [facility] Basic Metabolic Profile (BMP )on 11-10-2022 BUN/CRE 24.0 RATIO High 10-20 [facility] Comment on above: Performed By: #### L 500.2500, L100.0100 #### [facility] [address] [place], [address] CA,Total 9.7 mg/dL Normal 8.5-10.1 [facility] Comment on above: Performed By: #### L 500.2500, L100.0100 #### [facility] [address] [place], [address] Chloride [Moles/Vol] 105 mmol/L Normal 98-107 [facility] Comment on above: Performed By: #### L 500.2500, L100.0100 #### [facility] [address] [place], [address] CO2 [Moles/Vol] 30.0 mmol/L Normal 21.0-32.0 [facility] Comment on above: Performed By: #### L 500.2500, L100.0100 #### [facility] [address] [place], [address] Creatinine [Mass/Vol] 1.00 mg/dL Normal 0.70-1.30 [facility] Comment on above: Result Comment: The validity of the calculated GFR GFRAA in patients over 70 years has not been determined. Clinical correlation is essential. Performed By: #### L 500.2500, L100.0100 #### [facility] [address] [place], [address] ECRCL 101.31 ml/min Normal [facility] Comment on above: Performed By: #### L 500.2500, L100.0100 #### [facility] [address] [place], [address] EST GFR - AA 104 mL/min Normal >60 [facility] Comment on above: Result Comment: Afri can Croat[place] GFR Calc Performed By: #### L 500.2500, L100.0100 #### [facility] [address] [place], [address] GAP 3 Low 5-15 [facility] Comment on above: Performed By: #### L 500.2500, L100.0100 #### [facility] [address] [place], [address] GFR/1.73 sq M.predicted among non-blacks MDRD (S/P/Bld) [Vol rate/Area] 86 mL/min/{1.73_m2} Normal >60 [facility] Comment on above: Result Comment: Non- GFR Calc Performed By: #### L 500.2500, L100.0100 #### [facility] [address] [place], [address] Glucose [Mass/Vol] 103 mg/dL Normal 74-106 [facility] Comment on above: Result Comment: Fast ing Glucose result from 100 to 125 mg/dL suggests IMPAIRED HOMEOSTASIS per A.D.A. criteria. Performed By: #### L 500.2500, L100.0100 #### [facility] [address] [place], [address] Potassium [Moles/Vol] 3.6 mmol/L Normal 3.5-5.1 [facility] Comment on above: Performed By: #### L 500.2500, L100.0100 #### [facility] [address] [place], [address] Sodium [Moles/Vol] 138 mmol/L Normal 136-145 [facility] Comment on above: Performed By: #### L 500.2500, L100.0100 #### [facility] [address] [place], [address] Urea nitrogen [Mass/Vol] 24 mg/dL High 7-18 [facility] Comment on above: Performed By: #### L 500.2500, L100.0100 #### [facility] [address] [place], [address] Venous Duplex US - Roni Extre [facility] 11-10-2022 Venous Duplex US - Roni Extrem [facility] [address] [place] [address] Venous Duplex US - Roni Extrem 11/10/22 1418 MR#: [id number] Acct: [id number] Name: MELIZA ELKINS Rep #: [id number] : 1975 47 From: Alvarado Lopez MD Attending Dr: Dr. Crystal Gómez DO Sta tus: ADM IN Ordering Dr: Crystal Gómez DO Date: 11/10/22 Location: RU Sex: M C Admitted: 11/07/22 Reason For Study: F/U DVT (DISTAL TO KNEE unknown which leg) RIGHT LEFT GSV is normal. GSV is normal. CFV is compressible. CFV is compressible, spontaneous, phasic, FV is compressible, spontaneous, phasic, competent, and demonstrates normal competent and demonstrates normal augmentation. augmentation. FV is compressible, spontaneous, phasic, POP V is compressible, spontaneous, phasic, competent and demonstrates normal competent and demonstrates normal augmentation. augmentation. POP V is compressible, spontaneous, phasic, T/P Trunk is compressible. competent and demonstrates normal PTV is compressible. augmentation. RT PerV is compressible. T/P Trunk is compressible. Procedure PTV is compressible. This is a venous duplex using B-mode, color LT PerV is compressible. flow and spectral Doppler. Exam performed portable in patient room. The study was technically difficult. PT was agitated. PT would not permit RT CFV evaluation with color or PW doppler. . A preliminary report was called and/or faxed to 4th floor [facility]AB [facility]. VL/Venous Duplex US - Roni Extrem Interpretation Summary Deep veins of the bilateral lower extremities are patent and compressible segmentally. There is no evidence of bilateral lower extremity deep vein thrombosis. The bilateral great saphenous veins appear patent and compressible segmentally. Ordering Physician: Crystal Gómez Referring Physician: Crystal Gómez Performed By: Nita Oliver, FREDERICKCS, RVT 11/11/22 991 Date Alvarado Lopez MD CC: Dr. Crystal Gómez, Date Dictated: 11/10/22 1418 Date Transcribed: 11/11/221718 Physician Scribe: Signed Normal [facility] Bedside Glucoseon 11-09-2022 FINGERSTICK GLU 137 mg/dL High 74-106 [facility] Comment on above: Result Comment: ESTEBANNaeem CASTELANCHILANGO OF PATIENT CARE PER NURSING PROTOCOL Performed By: #### L 500.2500, L100.0100 #### [facility] [address] [place], [address] Glucose Glucometer (BldC) [M ass/Vol]Ordered By: Crystal Gómez on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
--- NOTE | 2024-10-09 22:40 | RAD_ITS ---
PROCEDURE: CHEST PA AND LATERAL 10/09/2024 REASON FOR EXAM: FEVER, TACHYPNEA TECHNIQUE: CHEST PA AND LATERAL COMPARISON: None FINDINGS: Hardware: None Heart: The heart size is normal. Mediastinum: The mediastinal contour is unremarkable. Lungs: No focal consolidation or pleural effusion. Bones: Mild degenerative changes are identified within the thoracic spine. RAD/Chest PA and Lateral IMPRESSION: No acute cardiopulmonary abnormality. Reading Location: [id number]
[2024-10-09 22:58] LABS: Color, Urine Yellow (Yellow); Glucose, Dipstick Normal (Normal); Ketone-Dipstick Negative (Negative); Leukocyte Esterase-Dipstick 25 /ul (Negative); Nitrite-Dipstick Negative (Negative); Occult Blood-Urine 10 /ul (Negative); Protein-Dipstick 30 mg/dl (Negative); Specific Gravity, Urine 1.020 (1.002-1.030); Urine Bilirubin Dipstick Negative (Negative)
[2024-10-09 23:00] VITALS: BP 133/80; PULSE 91; RESP 16; TEMP 38.8; O2SAT 99
[2024-10-09 23:07] LABS: AST(SGOT) 51 U/L (<=37); Alanine Aminotransfer ALT/SGPT 63 U/L (<=46); Albumin, Serum 4.0 g/dL (3.5-5.0); Alkaline Phosphatase 100 U/L (40-129); Anion Gap 13 (5-15); BUN 15 mg/dL (4-19); BUN/Creat Ratio 14.4 RATIO (10-20); Calcium,Total 9.0 mg/dL (7.6-11.0); Carbon Dioxide 23.2 mmol/L (21.0-32.0); Chloride 100 mmol/L (98-108); Estimated Creatinine Clearance 109.58 ml/min (50-250); Globulin 2.7 g/dL (2.2-4.2); Glucose 97 mg/dL (70-99); Potassium 3.4 mmol/L (3.3-5.1)
[2024-10-09 23:08] LABS: Prothrombin Time (Protime)PT. 14.6 SECONDS (11.7-14.9)
[2024-10-09 23:09] LABS: Partial Thromboplast Time 30.8 Seconds (24.1-36.2)
[2024-10-09 23:15] LABS: Mucous, Urine 2+ /hpf (<or=2+); Red Blood Cells-Urine 0-5 SEEN /hpf (0-5); Squamous Epithelial Cells - UA 0-5 SEEN /hpf (0-5)
[2024-10-10] VITALS: BP 136/77; PULSE 88; RESP 18; TEMP 38.8; O2SAT 98
[2024-10-10 00:36] VITALS: BP 127/78; PULSE 86; RESP 18; TEMP 38.8; O2SAT 100
== END 2024-10-10 00:42 | disposition home or self-care (01) ==
PROVIDERS: Emergency Provider Emergency Medicine; PCP Physician Assistant; Referring Provider Emergency Medicine; Visit Provider Emergency Medicine
DX: R50.9 Fever, unspecified (principal); B37.0 Candidal stomatitis
CPT/HCPCS: 71046; 80053; 81001; 83605; 85025; 85610; 85730; 87040; 87086; 87631; 87633; 87651; 93005; 96374; 99284